=== PATIENT | male | born 1945 ===

== ENCOUNTER 2022-09-01 15:54 | Inpatient (IN) | payer MEDICARE, SELFPAY ==
--- NOTE | ~2022-09-01 | CT_ITS ---
EXAMINATION: CT HEAD WITHOUT CONTRAST CLINICAL INFORMATION: Cognitive decline COMPARISON: None available. TECHNIQUE: Contiguous axial imaging was performed from the skull base to vertex without intravenous administration of contrast. This CT examination was performed using dose optimization techniques as appropriate, variously including the following: *Automated exposure control *Adjustment of mA and/or kV according to patient size (this includes techniques or standardized protocols for targeted exams where dose is matched to indication/reason for exam; i.e. 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 No other extra-axial collection. No intra or extra-axial hemorrhage. Ventricles and extra-axial CSF spaces are prominent suggestive of mild generalized atrophy. There is nonspecific periventricular white matter disease. No mass, mass effect or infarct. Bone windows are normal. No skull fracture. Visualized paranasal sinuses, mastoid air cells and middle ears are clear. CT/CT head/brain wo IV con IMPRESSION: No acute intracranial findings. Mild generalized atrophy and nonspecific periventricular white matter disease. 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
[2022-09-01 16:10] VITALS: BP 136/68; PULSE 66; RESP 18; TEMP 36.5; O2SAT 100; BMI 25.7
--- NOTE | 2022-09-01 16:42 | ED.PSYCH ---
HPI - Psych General Chief Complaint: Psychiatric Symptoms Stated Complaint: DEMENTIA, UNCOOPERATIVE Time Seen by Provider: 09/01/22 16:03 Source: patient, EMS and other Mode of arrival: EMS History of Present Illness HPI Narrative: This is a 77-year-old male who is [facility]. Patient informs me that some lady started yelling and screaming at him and he states he has no idea why he is here. He is able to identify the year, the president, and his legs current location. Patient denies any shortness of breath, chest pain/palpitations, GI or symptoms at this time. He states that he is upset because he is unclear of why he is here. Related Data Home Medications Medication Instructions Recorded Confirmed famotidine 40 mg tablet 40 mg PO BEDTIME 09/02/22 09/02/22 lorazepam 0.5 mg tablet 0.5 mg PO BID PRN Anxiety 09/02/22 09/02/22 quetiapine 300 mg tablet 450 mg PO BEDTIME 09/02/22 09/02/22 Allergies Allergy/AdvReac Type Severity Reaction Status Date / Time No Known Allergies Allergy Verified 09/01/22 19:12 Review of Systems Review of Systems: Pertinent positives and negatives as stated in HPI PMFSH Past Medical History Source: nursing notes reviewed Social History Social History Advance Directives: Yes Advance Directives Information Provided: No Advance Directives on File: No Physical Exam Vital Signs: Vital Signs: Last Vital Signs Temp 97.7 F 09/01/22 16:10 Pulse 69 09/01/22 17:19 Resp 17 09/01/22 17:19 BP 141/69 H 09/01/22 17:19 Pulse Ox 100 09/01/22 17:19 O2 Del Method Room Air 09/01/22 17:19 BMI result Body Mass Index 25.7 VITAL SIGNS: Reviewed. GENERAL: Well developed, well nourished, in no acute distress. HEAD: Normocephalic/atraumatic EYES: PERRLA, EOMI EARS: Ext canals without abnormality NOSE: Nares patent bilateral OROPHARYNX: no oral lesions noted, posterior pharynx clear NECK: Supple, no adenopathy LUNGS: Normal breath sounds. No adventitious sounds or accessory muscle use. SpO2<100> CARDIOVASCULAR: Regular rate and rhythm without noted murmurs ABDOMEN: Soft, non-tender, non-distended with bowel sounds. MUSCULOSKELETAL: No tenderness, deformities, or effusions noted on gross inspection. EXTREMITIES: No cyanosis, clubbing or edema. SKIN: Inspection of the skin reveals no rashes NEUROLOGIC: Alert and oriented x 3. Strength and sensation to light touch were grossly intact x 4, cranial nerves 2-12 are grossly intact PSYCH: Mildly agitated, normal affect Medical Decision Making Medical Decision Making MDM Narrative: 77-year-old male brought in by EMS purportedly under Section 12 but on review of this document it is a copy and not the original, does not appear to be filled out correctly. Patient was brought in from a locked dementia unit and according to staff patient had gotten outside and they were concerned for his safety. I have medically evaluated the patient and there are no findings to necessitate lab work or imaging. This facility is a locked dementia unit and therefore patient is medically cleared for return to this unit. [facility] who cleared the patient for admission and accepted payment for admission and is claiming cocaine use by the patient and that she had concerns last week but did not recommend any further evaluation. This collateral information was obtained by our case management personnel. We have calls out to net manager, Cam Acosta, but had to leave a message and son is HCP, Vivek Kerns but no contact information and facility did not have the son's contact information. A call out to [facility] director. 1954: Dr. Bowens was able to call us back and provide contact information for Gianfranco Kerns, the son, the phone number is: [phone]. Dr. Bowens is requesting a sign of release of information but is unsure of who evaluated the patient and cleared him for admission to a locked dementia unit. We will obtain release of information signature and then I will speak with Dr. Pro owens afterwards. We will also reach out to the son. On further evaluation we are getting the crisis team consult as well as psychiatry consult. Patient is otherwise medically cleared for further evaluation. Patient was made a Section 12. Patient placed in physician observation because the patient needed more time for crisis and psychiatry evaluation. At the time observation was started the patient's vital signs were stable, patient is alert and oriented, neuro: Nonfocal, CV RRR, lungs clear Differential Diagnosis Please see this discussion above Lab Data Please see the discussion above 09/01/22 23:54 09/01/22 23:54 Labs: Lab Results 09/01/22 09/01/22 09/01/22 Range/Units 22:29 22:29 23:54 WBC 7.2 (4.8-10.8) X10*3/uL RBC 4.00 L (4.60-5.80) X10*6/uL Hgb 12.3 L (14.0-18.0) g/dl Hct 37.4 L (42.0-52.0) % MCV 93.5 (80.0-98.0) fL MCH 30.8 (27.0-33.0) pg MCHC 32.9 (31.0-36.0) g/dl RDW 14.4 (11.0-16.0) % Plt Count 195 (160-400) X10*3/uL MPV 10.7 (9.4-12.4) fL Immature Gran % (Auto) 0.3 (0.0-0.4) % Neut % (Auto) 57.9 (45-73) % Lymph % (Auto) 29.9 (20-40) % [place] % (Auto) 9.9 (2-11) % Eos % (Auto) 1.7 (0-4) % Baso % (Auto) 0.3 (0-2) % Lymph # (Auto) 2.2 (1.2-4.9) X10*3/uL [place] # (Auto) 0.7 (0.1-1.2) X10*3/uL Eos # (Auto) 0.1 (0.0-0.4) X10*3/uL Baso # (Auto) 0.0 (0.0-0.2) X10*3/uL Abs Immat Gran (auto) 0.02 (0.00-0.03) X10*3/uL Absolute Neuts (auto) 4.2 (2.0-8.3) x10*3/uL Absolute Nucleated RBC 0.000 (0.0-0.012) X10*3/uL Nucleated RBC % (auto) 0.0 (0.0-0.2) /100WBC Sodium (135-145) mmol/L Potassium (3.3-5.1) mmol/L Chloride (96-108) mmol/L Carbon Dioxide (22-29) mmol/L Anion Gap (12-20) BUN (9-16) mg/dL Creatinine (0.5-1.4) mg/dL Estim Creat Clear Calc Estimated GFR Random Glucose (60-115) mg/dL Calcium (8.4-10.2) mg/dL Total Bilirubin (0.0-1.0) mg/dL AST (5-37) U/L ALT (0-40) U/L Alkaline Phosphatase (39-117) U/L Total Protein (6.5-8.0) g/dL Albumin (3.5-5.0) g/dL Urine Color Yellow Urine Appearance Turbid Urine pH 5.0 (5.0-9.0) Ur Specific [place] 1.020 (1.005-1.025) Urine Protein Negative (Neg-Trace) mg/dL Urine Glucose (UA) Negative (Negative) mg/dL Urine Ketones Negative (Negative) mg/dL Urine Blood Negative (Negative) Urine Nitrite Negative (Negative) Ur Leukocyte Esterase Negative (Negative) Urine Opiates Screen Not Detected (Not Detect) Urine Fentanyl Screen Not Detected (Not Detect) Ur Barbiturates Screen Not Detected (Not Detect) Ur Phencyclidine Scrn Not Detected (Not Detect) Ur Amphetamines Screen Not Detected (Not Detect) U Benzodiazepines Scrn Not Detected (Not Detect) Urine Cocaine Screen Not Detected (Not Detect) U Marijuana (THC) Screen Not Detected (Not Detect) Ethyl Alcohol mg/dL COVID-19 ([facility]) (Negative) COVID-19 Clin Com 09/01/22 09/02/22 Range/Units 23:54 00:35 WBC (4.8-10.8) X10*3/uL RBC (4.60-5.80) X10*6/uL Hgb (14.0-18.0) g/dl Hct (42.0-52.0) % MCV (80.0-98.0) fL MCH (27.0-33.0) pg MCHC (31.0-36.0) g/dl RDW (11.0-16.0) % Plt Count (160-400) X10*3/uL MPV (9.4-12.4) fL Immature Gran % (Auto) (0.0-0.4) % Neut % (Auto) (45-73) % Lymph % (Auto) (20-40) % [place] % (Auto) (2-11) % Eos % (Auto) (0-4) % Baso % (Auto) (0-2) % Lymph # (Auto) (1.2-4.9) X10*3/uL [place] # (Auto) (0.1-1.2) X10*3/uL Eos # (Auto) (0.0-0.4) X10*3/uL Baso # (Auto) (0.0-0.2) X10*3/uL Abs Immat Gran (auto) (0.00-0.03) X10*3/uL Absolute Neuts (auto) (2.0-8.3) x10*3/uL Absolute Nucleated RBC (0.0-0.012) X10*3/uL Nucleated RBC % (auto) (0.0-0.2) /100WBC Sodium 143 (135-145) mmol/L Potassium 4.0 (3.3-5.1) mmol/L Chloride 109 H (96-108) mmol/L Carbon Dioxide 25 (22-29) mmol/L Anion Gap 13 (12-20) BUN 18 H (9-16) mg/dL Creatinine 1.16 (0.5-1.4) mg/dL Estim Creat Clear Calc 54.1 Estimated GFR > 60 Random Glucose 101 (60-115) mg/dL Calcium 8.8 (8.4-10.2) mg/dL Total Bilirubin 0.3 (0.0-1.0) mg/dL AST 9 (5-37) U/L ALT 8 (0-40) U/L Alkaline Phosphatase 60 (39-117) U/L Total Protein 5.8 L (6.5-8.0) g/dL Albumin 3.6 (3.5-5.0) g/dL Urine Color Urine Appearance Urine pH (5.0-9.0) Ur Specific [place] (1.005-1.025) Urine Protein (Neg-Trace) mg/dL Urine Glucose (UA) (Negative) mg/dL Urine Ketones (Negative) mg/dL Urine Blood (Negative) Urine Nitrite (Negative) Ur Leukocyte Esterase (Negative) Urine Opiates Screen (Not Detect) Urine Fentanyl Screen (Not Detect) Ur Barbiturates Screen (Not Detect) Ur Phencyclidine Scrn (Not Detect) Ur Amphetamines Screen (Not Detect) U Benzodiazepines Scrn (Not Detect) Urine Cocaine Screen (Not Detect) U Marijuana (THC) Screen (Not Detect) Ethyl Alcohol < 10 mg/dL COVID-19 ([facility]) Negative (Negative) COVID-19 Clin Com See Note Discharge Plan Discharge Clinical Impression: Agitation, Dementia Patient Disposition: Still a Patient Prescriptions: No Action lorazepam 0.5 mg tablet 0.5 mg PO BID PRN (Reason: Anxiety) quetiapine 300 mg tablet 450 mg PO BEDTIME famotidine 40 mg tablet 40 mg PO BEDTIME Referrals: Physician,Unknown J [Primary Care Provider] - 1 Week
[2022-09-01 17:19] VITALS: BP 141/69; PULSE 69; RESP 17; O2SAT 100
--- NOTE | 2022-09-01 18:04 | PC.NURSE ---
PT IS AOX4 CALM AND COOPERATIVE, TOLERATING DINNER. HAS BEEN POLITE AND TALKATIVE WITH RN
--- NOTE | 2022-09-01 19:35 | MHC.EDTECH ---
Pt refused to have an EKG done and also refused Lab work and all medical care. Pt request to leave A.M.A
--- NOTE | 2022-09-01 19:38 | MHC.EDTECH ---
PATIENT REFUSED EKG LAB WORK STATING HE WANTS TO GO HOME RN WAS MADE AWARE
--- NOTE | 2022-09-01 20:24 | PC.NURSE ---
verbal order per dr rehman pt is now a sec 12. pt has attempted to leave the hospital security present.
--- NOTE | 2022-09-01 20:55 | MHC.CM.ED ---
Addendum entered by Macy العلي Leann Adams 09/01/22 21:57: Vivek Kerns [phone] ([place]) Dr. Thomas PCP [phone] Dr. Bowens Psych [phone] Edda Cullen psych/bridger BASKETBALL REFEREE [phone] Emi Glass Director [facility] Cam Acosta software implementation project manager [phone] Original Note: [facility] arrived from [facility]. Was being admitted to facility with friend and according to Edda Cullen BASKETBALL REFEREE ([phone]) and Yoon Glass, Director at the [facility] ([phone]) pt became agitated, throwing items, threatening staff and patients, saying he was going to shoot people and continued to escalate. Pt eventually ran out of facility to street and was attempting to stop cars to take him home. Per Emi at the [facility], patient cannot return tonight and she is requesting a psych evaluation and medication management. Emi tells AMY she had some concerns when she met this patient and consulted Edda BASKETBALL REFEREE to assess patient. According to Edda CHAVEZ, pt was paranoid, delusional and depressed. Concerns about him being bipolar. Pt also has a HX of cocaine/abuse. States she had no records for this patient and had placed a call for patient history and medications with Dr. Bowens, pt psychiatrist ([phone]), but has not been able to speak with him. Edda lows AMY she met with patient once last week. CM spoke with Cam Acosta, strategic partner development manager ([phone]) who was hired by son, Vivek Kerns to provide care for patient and assist with both home care and with placement. According to Cam, patient has a psychiatric history and has had inpatient psych admissions. Cam tells AMY that patient has been at [facility] 4 times in the last 2 months for psych concerns and broken wrist. States that patient has verbally threatened him, that he is burning food and has tried to enter neighbors homes, thinking it was his home. States patient is not safe at home. States patient has seroquel for sleep, but it is not effective and patient has been sleeping poorly and has been in a downward spiral over last several weeks. Cam tells AMY that last night, patient was verbally abusive to home staff, threatening that she was stealing from him. [facility] patient behaviors escalated and 911 was called to the home. [place] police arrived and felt patient was in a psychiatric crisis, so then called the mobile psych clinician, who evaluated the patient in his home. Pt calmed down, and was making some self harm statements, however, friend was staying with patient overnight and then would be admitted to the [facility] today. Pt was not transported to the ED last night. CM spoke with Vivek Kerns, son invoked HCP and POA. Vivek is very concerned that patient not be allowed to leave. States patient is not safe at home. Burning food, entering other neighbors homes, thinking it was his house. States his father has had severe delusional issues, drug abuse, inpatient psych hospitalizations and stopped taking his medications about 3 weeks ago. Was taking Klonopin, seroquel and Rexualti. Spiralling downward, abusive, inviting vagrants into his home, thinking they were his 's family. Thinks home care staff are stealing from him. Son thinks patient may have $5000 dollars in is wallet. States his father was agreeable to move to the [facility] and even helped pack. Vivek feels he was agreeable because he did not want the hired home help in his home anymore. Vivek tells CM that Dr. Morton in [place], his fathers PCP invoked the HCP. Ivvek tells CM that Dr. Nicki Tse saw his father in December and had concerns about dementia, but was unable to complete testing, as his father would not cooperate. CM assured Vivek that patient would remain in ED tonight, as the [facility] would not take him back tonight. Vivek is much relieved. Has contact information for CM. Will call him with updates tomorrow. Dr. Sierra aware of above conversations and will consult CARE team. CM spoke with Jenifer from CARE team. Feels patient may need bridger-psych admission. CARE team will evaluate patient. CM met with patient. Patient is aware that he will stay overnight and that the psych team will see him. Pt states that there is nothing wrong with him. States his son wants his money and he has 40 million dollars. States he just wanted to leave the assisted living today and they would not let him. States there are only old people there. CM did explain that most people that live at assisted living have andres hair. CM explained that there are some concerns about his safety. Pt denies any safety concerns. Pt voice was rising and he states he is safe at home and has help. Pt requesting something for sleep. RN aware. Requested bed for patient to sleep.
--- NOTE | 2022-09-01 21:27 | PHA.MEDREC ---
Addendum entered by Vishnu Deleon 09/01/22 21:52: The son called back and said the patient has not been on any medications for about a month now due to his dementia diagnosis. Original Note: Pharmacy Consult ? Medication Reconciliation Pharmacy has completed the medication reconciliation. unable to speak with patient. Left his son (Vivek) a voicemail. Called the [facility] and they did not have him on any medications since he was new to the facility. They tried to order and administer Lorazepam to the patient today, but the nurse that I spoke with does not know if he ever received it. Used claim history to complete med reconciliation.
--- NOTE | 2022-09-01 21:47 | PC.NURSE ---
assumed care of pt in room ED 17 from [facility]. Pt is agitated and is upset with the son for putting him in a nursing facility. Pt also is rather aggressive with the staff and states he just wants to leave and wants to be alone . Pt appears to be pressured with his speech and rather paranoid and refusing any Blood work or treatments to be preformed by the hospital staff. Pt is constantly in need assurance that the staff has his best interest. .
--- NOTE | 2022-09-01 22:00 | PC.NURSE ---
Pt throughout the day/night is refusing lab work, EKG, testing that are prevalent to his care or any type of treatment. Pt is very agrumentive when asked to do anything for his care. MD is aware of pts refusal and behavior.
[2022-09-01 22:46] LABS: Amphetamine Screen Urine Not Detected (Not Detect); Barbiturates, Urine Not Detected (Not Detect); Benzodiazepines Screen Urine Not Detected (Not Detect); Cannabinoid Screen Urine Not Detected (Not Detect); Cocaine Screen Urine Not Detected (Not Detect); Fentanyl, urine Not Detected (Not Detect); Opiate Screen Urine Not Detected (Not Detect); Phencyclidine Screen Urine Not Detected (Not Detect)
--- NOTE | 2022-09-01 23:28 | MHC.EDTECH ---
Patient refused vitals at this time ED ROUNDS ARE DONE WILL CONTINUE TO MONITOR
[2022-09-01 23:58] LABS: MANUAL DIFF FLAG NO
[2022-09-01 23:59] LABS: Basophils Percent Auto 0.3 % (0-2); Eosinophils Absolute Auto 0.1 X10*3/uL (0.0-0.4); Eosinophils Percent Auto 1.7 % (0-4); Hematocrit 37.4 % (42.0-52.0); Hemoglobin 12.3 g/dl (14.0-18.0); Imm Gran Abs Auto 0.02 X10*3/uL (0.00-0.03); Imm Gran Pct Auto 0.3 % (0.0-0.4); Lymphocytes Absolute Auto 2.2 X10*3/uL (1.2-4.9); Lymphocytes Percent Auto 29.9 % (20-40); Mean Corpuscular HGB Conc 32.9 g/dl (31.0-36.0); Mean Corpuscular Hemoglobin 30.8 pg (27.0-33.0); Mean Corpuscular Volume 93.5 fL (80.0-98.0); Mean Platelet Volume 10.7 fL (9.4-12.4); Monocytes Absolute Auto 0.7 X10*3/uL (0.1-1.2); Monocytes Percent Auto 9.9 % (2-11); Neutrophils Absolute Auto 4.2 x10*3/uL (2.0-8.3); Neutrophils Percent Auto 57.9 % (45-73); Platelet Count 195 X10*3/uL (160-400); Red Cell Distribution Width 14.4 % (11.0-16.0); White Blood Count 7.2 X10*3/uL (4.8-10.8)
[2022-09-02 00:17] LABS: Alanine Aminotransferase 8 U/L (0-40); Albumin Level 3.6 g/dL (3.5-5.0); Alkaline Phosphatase 60 U/L (39-117); Anion Gap 13 (12-20); Aspartate Amino Transferase 9 U/L (5-37); Bilirubin Total 0.3 mg/dL (0.0-1.0); Blood Urea Nitrogen 18 mg/dL (9-16); Calcium 8.8 mg/dL (8.4-10.2); Carbon Dioxide 25 mmol/L (22-29); Chloride 109 mmol/L (96-108); Creatinine Clr Calc Pharmacy 54.1; Estimated Glomerular Filt Rate > 60; Ethanol < 10 mg/dL; Glucose Random 101 mg/dL (60-115); Sodium 143 mmol/L (135-145); Total Protein 5.8 g/dL (6.5-8.0)
--- NOTE | 2022-09-02 00:21 | PC.NURSE ---
pt has been refusing, labs, private branch exchange installer, ekg and covid swab. with security present pt labs and private branch exchange installer took place. pt verbally refusing additional treatment and wants to go to his room (bridger dai)
[2022-09-02 00:38] LABS: Appearance Urine Turbid; Color Urine Yellow; Glucose Urine UA Negative (Negative); Leukocyte Esterase Urine Negative (Negative); Nitrite Urine Negative (Negative); Urine Blood Negative (Negative); Urine Ketones Negative (Negative); Urine Protein Negative (Neg-Trace)
--- NOTE | 2022-09-02 00:40 | MHC.EDTECH ---
this tech assumed care of this pt at 0020, upon arrival to the pod pt agitated and refusing all vital signs at this time. RN MADE AWARE.
--- NOTE | 2022-09-02 00:43 | PC.NURSE ---
Patient just got transferred from main ED after getting cleared medically by MD Sierra, ambulates independently, loud and disruptive, med rec updated, per report patient has been refusing EKG and stating his heart great and he did EKG recently so he doesn't need one, plan for patient will be determined by care team and psych providers, VS refused. will continue to monitor.
[2022-09-02 00:58] LABS: COVID-19 Test Negative (Negative); IDNOW Serial# BCCEAD1C
--- NOTE | 2022-09-02 05:42 | PC.NURSE ---
Patient slept through the night, no distress observed/reported, behavior loud and disruptive but not concerning, care consult ordered/pending care team evaluation in the morning, psych consult ordered/pending evaluation, med rec completed/pending provider's approval, refused vital signs assessment, per report patient listen better to male staff member, will continue to monitor.
--- NOTE | 2022-09-02 11:30 | MHC.EDTECH ---
Pt still refusing EKG at this time.
[2022-09-02 18:00] VITALS: BP 139/71; PULSE 57; RESP 18; TEMP 36.6; O2SAT 98
--- NOTE | 2022-09-02 18:33 | PC.ADMIT ---
Addendum entered by Annie Valencia RN 09/02/22 18:49: Skin warm and dry. Splint noted to L wrist 2 to previous fall at home. Pt states fell 6 months ago and fractured wrist. C/o increased pain to that wrist when splint off. Edema noted to that wrist. +CMS to L hand Original Note: Pt admitted to S1 through ED. Pt oriented to floor-states I want nothing to do with this Ate meal in sensory room. Pt reluctantly answered admission questions stating I want to go home. I don't want to be here Pt A&O x 4 although states he is unaware of what day it is since he's been here. VSS resp even unlabored. States he was sent to a alf where he did not like the atmosphere of others in wheelchairs and feels that is not the place for him to live. He became angry and left. He returned to the car that brought him to the [facility] which drove him around the facility and returned him to the front door. He got out of the car, became extremely agitated and began yelling everyone is going to here He started throwing the flower pots, kicking them upon walking out of the parking lot where he was picked up by the police and brought to [facility] ED. Pt has a hx of depression and SI. No HI. States he presently is not suicidal but he no longer wants to live like this. Son, Vivek is presently his HCP but pt refuses to sign release at present to speak with him. 3 day notice signed
[2022-09-02] MEDS: Famotidine 20 MG TABLET 40 MG PO (20:33)
[2022-09-02] MEDS: QUEtiapine Fumarate 50 MG TABLET PO (20:34)
[2022-09-02] MEDS: QUEtiapine Fumarate 400 MG TABLET PO (20:35)
--- NOTE | 2022-09-03 | ECG_ITS ---
Test Reason : QTC Blood Pressure : / mmHG Vent. Rate : 068 BPM Atrial Rate : 068 BPM P-R Int : 148 ms QRS Dur : 138 ms QT Int : 432 ms P-R-T Axes : 055 037 029 degrees QTc Int : 459 ms Normal sinus rhythm Right bundle branch block Abnormal ECG No previous ECGs available Referred By: Jessica Mcgee Electronically Signed By:RANJIT PEARCE MD
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
[2022-09-03] MEDS: LORazepam 0.5 MG TABLET PO ×2 (13:36→20:38)
[2022-09-03] MEDS: risperiDONE 1 MG TABLET PO ×2 (13:36→20:38)
[2022-09-03 18:00] VITALS: BP 142/79; PULSE 78; RESP 18; TEMP 36.2; O2SAT 99
[2022-09-03] MEDS: Famotidine 20 MG TABLET 40 MG PO (20:38)
[2022-09-03] MEDS: Divalproex Sodium 250 MG TABLET.DR PO (20:38)
[2022-09-04] MEDS: traZODone HCL 50 MG TABLET PO ×2 (00:56→21:06)
[2022-09-04] MEDS: LORazepam 0.5 MG TABLET PO ×2 (09:04→20:14)
[2022-09-04] MEDS: Divalproex Sodium 250 MG TABLET.DR PO ×2 (09:04→20:14)
[2022-09-04] MEDS: risperiDONE 1 MG TABLET PO ×2 (09:04→20:14)
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
[2022-09-04 18:00] VITALS: BP 122/68; PULSE 79; RESP 18; TEMP 36.2; O2SAT 100
[2022-09-04] MEDS: LORazepam 2 MG/ML VIAL IM (19:19)
[2022-09-04] MEDS: OLANZapine 10 MG VIAL IM (19:19)
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
[2022-09-04] MEDS: Famotidine 20 MG TABLET 40 MG PO (20:14)
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
[2022-09-06] MEDS: risperiDONE 2 MG TABLET PO ×2 (09:22→22:36)
[2022-09-06] MEDS: LORazepam 0.5 MG TABLET PO ×2 (09:22→22:36)
[2022-09-06] MEDS: Divalproex Sodium 250 MG TABLET.DR PO ×2 (09:22→22:35)
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
[2022-09-06] MEDS: risperiDONE 0.5 MG TABLET PO (17:38)
[2022-09-06 18:00] VITALS: BP 115/58; PULSE 78; RESP 16; TEMP 36.3; O2SAT 97
[2022-09-06] MEDS: Famotidine 20 MG TABLET 40 MG PO (22:35)
[2022-09-06] MEDS: traZODone HCL 50 MG TABLET PO (22:36)
[2022-09-07 08:05] VITALS: BP 113/70; PULSE 95; RESP 16; TEMP 36.1; O2SAT 96
[2022-09-07] MEDS: LORazepam 0.5 MG TABLET PO ×2 (08:29→20:01)
[2022-09-07] MEDS: risperiDONE 2 MG TABLET PO ×2 (08:29→20:01)
[2022-09-07] MEDS: Divalproex Sodium 250 MG TABLET.DR PO (08:29)
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
[2022-09-07 18:00] VITALS: BP 153/71; PULSE 73; RESP 18; TEMP 36.3; O2SAT 98
[2022-09-07] MEDS: traZODone HCL 100 MG TABLET PO ×2 (20:00→22:50)
[2022-09-07] MEDS: Divalproex Sodium 500 MG TABLET.DR PO (20:01)
[2022-09-07] MEDS: Famotidine 20 MG TABLET 40 MG PO (20:02)
[2022-09-08 06:00] VITALS: BP 131/68; PULSE 77; RESP 18; TEMP 36.4; O2SAT 97
[2022-09-08] MEDS: risperiDONE 2 MG TABLET PO ×2 (10:42→20:04)
[2022-09-08] MEDS: Divalproex Sodium 500 MG TABLET.DR PO ×2 (10:42→20:04)
[2022-09-08] MEDS: LORazepam 0.5 MG TABLET PO ×2 (10:42→20:04)
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
[2022-09-08 18:00] VITALS: BP 129/77; PULSE 78; RESP 16; TEMP 36.9; O2SAT 97
[2022-09-08] MEDS: traZODone HCL 100 MG TABLET PO (20:04)
[2022-09-08] MEDS: Famotidine 20 MG TABLET 40 MG PO (20:04)
[2022-09-09 06:00] VITALS: BP 140/71; PULSE 81; RESP 18; TEMP 36.2; O2SAT 96
[2022-09-09] MEDS: risperiDONE 2 MG TABLET PO ×2 (09:10→20:16)
[2022-09-09] MEDS: LORazepam 0.5 MG TABLET PO ×2 (09:11→20:16)
[2022-09-09] MEDS: Divalproex Sodium 500 MG TABLET.DR PO ×2 (09:11→20:16)
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
[2022-09-09 20:05] VITALS: BP 146/79; PULSE 76; RESP 16; TEMP 36.3; O2SAT 97
[2022-09-09] MEDS: traZODone HCL 100 MG TABLET PO ×2 (20:15→21:17)
[2022-09-09] MEDS: Famotidine 20 MG TABLET 40 MG PO (20:16)
[2022-09-10] MEDS: risperiDONE 2 MG TABLET PO ×2 (10:24→20:27)
[2022-09-10] MEDS: Divalproex Sodium 500 MG TABLET.DR PO ×2 (10:24→20:27)
[2022-09-10] MEDS: LORazepam 0.5 MG TABLET PO ×2 (10:24→20:27)
[2022-09-10 10:32] VITALS: BP 144/65; PULSE 78; RESP 18; TEMP 35.9; O2SAT 97
[2022-09-10 14:01] VITALS: BMI 23.4
[2022-09-10 18:00] VITALS: BP 136/78; PULSE 80; RESP 18; TEMP 36.6; O2SAT 98
--- NOTE | 2022-09-10 19:23 | HO.PSYCHPN ---
Subjective Subjective Date of Service: 09/10/22 Reason For Visit: agitation Subjective Notes: Section 7 Interim History: Pt presents as calmer. He continues to agree to plan of re trying returning to [facility]. He reports he feels calmer, still no insight into extend of cognitive impairment and need for additional supports. He denies SI/HI. He is taking medications as prescribed. [facility] can take him 09/14. Per nursing, no agitation or combative behaviors. Medication Compliance: Yes Review of Systems Review of Systems Pt denies SOB. No chest pain. No GI symptoms including diarrhea or loose stools. Mental Status Exam Mental Status Exam Narrative: Appearance: casually groomed, appears stated age, in NAD Behavior: initially guarded, but increasingly more cooperative Psychomotor: no agitation or retardation noted Speech: clear, normal rate/rhythm/volume, spontaneous TP: mostly linear, tangential at times, no loose associations TC: wanting to go home soon, paranoid delusions of people stealing from him Mood: upset Affect: congruent SI: passive due to paranoid delusions but denies plan or intent to harm self or others HI: none AH/VH: reports hearing voices on and off Delusions: paranoid delusions of people coming to his house, stealing from him. Insight/judgment: impaired x 2. Memory/cog: alert, oriented to place, month, date, not situation. Diagnostics Vital Signs (24Hr): Vital Signs - 24 hr 09/09/22 20:05 09/10/22 10:32 Temperature 97.3 F 96.7 F L Pulse Rate 76 78 Respiratory Rate 16 18 Blood Pressure 146/79 H 144/65 H Pulse Oximetry 97 97 Oxygen Delivery Method Room Air Room Air BMI result Body Mass Index 23.4 Labs 09/01/22 23:54 09/01/22 23:54 Imaging Radiology Impressions: ITS Impressions Head CT 09/03/22 15:14 IMPRESSION: No acute intracranial findings. Mild generalized atrophy and nonspecific periventricular white matter disease. 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 Medications Medications Current Medications Acetaminophen (Acetaminophen 325 Mg Tablet) 650 mg PO Q6H PRN PRN Reason: Headache/Pain Mild Scale (1-3) Al Hydroxide/Mg Hydroxide (Magnesium Hydrox/Alum Hydrox 30 Ml Oral.Susp) 30 ml PO Q6H PRN PRN Reason: Heartburn/Nausea Benztropine Mesylate (Benztropine Mesylate 0.5 Mg Tablet) 0.5 mg PO TID PRN PRN Reason: Extrapyramidal Effects Divalproex Sodium (Divalproex Sodium 500 Mg Tablet.Dr) 500 mg PO BID [facility] Last Admin: 09/10/22 10:24 Dose: 500 mg Famotidine (Famotidine 20 Mg Tablet) 40 mg PO BEDTIME [facility] Last Admin: 09/09/22 20:16 Dose: 40 mg Lorazepam (Lorazepam 0.5 Mg Tablet) 0.5 mg PO BID [facility] Last Admin: 09/10/22 10:24 Dose: 0.5 mg Magnesium Hydroxide (Milk Of Magnesia 30 Ml Oral.Susp) 30 ml PO DAILY PRN PRN Reason: Constipation Risperidone (Risperidone 0.5 Mg Tablet) 0.5 mg PO Q6H PRN PRN Reason: agitation Last Admin: 09/06/22 17:38 Dose: 0.5 mg Risperidone (Risperidone 2 Mg Tablet) 2 mg PO BID [facility] Last Admin: 09/10/22 10:24 Dose: 2 mg Trazodone HCl (Trazodone Hcl 100 Mg Tablet) 100 mg PO BEDTIME PRN PRN Reason: Insomnia Last Admin: 09/09/22 21:17 Dose: 100 mg Allergies Allergies Allergy/AdvReac Type Severity Reaction Status Date / Time No Known Allergies Allergy Verified 09/01/22 19:12 Assessment & Plan Assessment & Plan (1) Major neurocognitive disorder due to multiple etiologies with behavioral disturbance: Status: Acute Code(s): F02.818 - Dementia in other diseases classified elsewhere, unspecified severity, with other behavioral disturbance Plan Mr. Kerns is a 77 year-old male with hx of dementia, Bipolar Disorder who was brought on a Sect 12a after he was brought to formerly [facility] due to concerns of his ability to care for himself. While he was there, pt demanded to leave the facility and became combative. On the unit, pt presents with paranoid delusions stating that people are breaking to his home and turning his AC off. He also reports people are entering his apartment and stealing his food. He also reports he suspects his son is after his money and this being the reason for son to send him to [facility]. Per son, psychosis is fairly new since last year. Pt does have hx of Bipolar Disorder. He also has hx of cocaine and opioid use. Son suspects pt used last 2 months ago. Pt does not show understanding of medical conditions, rationale for medical interventions, lacking capacity to make medical decisions. We discussed risks, benefits and alternative treatment options with both son as HCP and pt, about switching seroquel to risperidone and starting mood stabilizer such as depakote. PLAN 1. Admit to S1, CV, 3 day, 15 minutes checks for safety. 09/07 increase depakote to 500mg po BID. Continue risperidone 2mg po BID- some involuntary perioral movement noted, can add cogentin. No cogwheel. 09/08 continue tx. will check depakote level in 4 days. 09/09 continue tx. 09/10 continue current tx. pt calmer, no agitation nor aggression. Reason for continued inpatient stay Substantial Risk for: inability to function Time Spent With Patient Time: Total time managing care of this patient today ____ minutes.
[2022-09-10] MEDS: Famotidine 20 MG TABLET 40 MG PO (20:27)
[2022-09-10] MEDS: traZODone HCL 100 MG TABLET PO ×2 (20:28→21:32)
[2022-09-11 08:00] VITALS: BP 119/65; PULSE 77; RESP 20; TEMP 36.4; O2SAT 96
[2022-09-11] MEDS: Divalproex Sodium 500 MG TABLET.DR PO ×2 (08:34→19:48)
[2022-09-11] MEDS: risperiDONE 2 MG TABLET PO ×2 (08:34→19:49)
[2022-09-11] MEDS: LORazepam 0.5 MG TABLET PO ×2 (08:34→19:49)
[2022-09-11] MEDS: risperiDONE 0.5 MG TABLET PO (13:20)
--- NOTE | 2022-09-11 17:16 | HO.PSYCHPN ---
Subjective Subjective Date of Service: 09/11/22 Reason For Visit: agitation Subjective Notes: Conditional Voluntary Interim History: Pt reports feeling calmer, less anxious. He continues to agree to try going to [facility]. Pt denies SI/HI. She reports sleeping well. No behavioral concerns. Less paranoia. No aggression here on the unit. Medication Compliance: Yes Review of Systems Review of Systems Pt denies SOB. No chest pain. No GI symptoms including diarrhea or loose stools. Mental Status Exam Mental Status Exam Narrative: Appearance: casually groomed, appears stated age, in NAD Behavior: initially guarded, but increasingly more cooperative Psychomotor: no agitation or retardation noted Speech: clear, normal rate/rhythm/volume, spontaneous TP: mostly linear, tangential at times, no loose associations TC: wanting to go home soon, paranoid delusions of people stealing from him Mood: upset Affect: congruent SI: passive due to paranoid delusions but denies plan or intent to harm self or others HI: none AH/VH: reports hearing voices on and off Delusions: paranoid delusions of people coming to his house, stealing from him. Insight/judgment: impaired x 2. Memory/cog: alert, oriented to place, month, date, not situation. Diagnostics Vital Signs (24Hr): Vital Signs - 24 hr 09/10/22 18:00 09/11/22 08:00 Temperature 97.8 F 97.6 F Pulse Rate 80 77 Respiratory Rate 18 20 Blood Pressure 136/78 119/65 Pulse Oximetry 98 96 Oxygen Delivery Method Room Air Room Air BMI result Body Mass Index 23.4 Labs 09/01/22 23:54 09/01/22 23:54 Imaging Radiology Impressions: ITS Impressions Head CT 09/03/22 15:14 IMPRESSION: No acute intracranial findings. Mild generalized atrophy and nonspecific periventricular white matter disease. 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 Medications Medications Current Medications Acetaminophen (Acetaminophen 325 Mg Tablet) 650 mg PO Q6H PRN PRN Reason: Headache/Pain Mild Scale (1-3) Al Hydroxide/Mg Hydroxide (Magnesium Hydrox/Alum Hydrox 30 Ml Oral.Susp) 30 ml PO Q6H PRN PRN Reason: Heartburn/Nausea Benztropine Mesylate (Benztropine Mesylate 0.5 Mg Tablet) 0.5 mg PO TID PRN PRN Reason: Extrapyramidal Effects Divalproex Sodium (Divalproex Sodium 500 Mg Tablet.Dr) 500 mg PO BID [facility] Last Admin: 09/11/22 08:34 Dose: 500 mg Famotidine (Famotidine 20 Mg Tablet) 40 mg PO BEDTIME [facility] Last Admin: 09/10/22 20:27 Dose: 40 mg Lorazepam (Lorazepam 0.5 Mg Tablet) 0.5 mg PO BID [facility] Last Admin: 09/11/22 08:34 Dose: 0.5 mg Magnesium Hydroxide (Milk Of Magnesia 30 Ml Oral.Susp) 30 ml PO DAILY PRN PRN Reason: Constipation Risperidone (Risperidone 0.5 Mg Tablet) 0.5 mg PO Q6H PRN PRN Reason: agitation Last Admin: 09/11/22 13:20 Dose: 0.5 mg Risperidone (Risperidone 2 Mg Tablet) 2 mg PO BID [facility] Last Admin: 09/11/22 08:34 Dose: 2 mg Trazodone HCl (Trazodone Hcl 100 Mg Tablet) 100 mg PO BEDTIME PRN PRN Reason: Insomnia Last Admin: 09/10/22 21:32 Dose: 100 mg Allergies Allergies Allergy/AdvReac Type Severity Reaction Status Date / Time No Known Allergies Allergy Verified 09/01/22 19:12 Assessment & Plan Assessment & Plan (1) Major neurocognitive disorder due to multiple etiologies with behavioral disturbance: Status: Acute Code(s): F02.818 - Dementia in other diseases classified elsewhere, unspecified severity, with other behavioral disturbance Plan Mr. Kerns is a 77 year-old male with hx of dementia, Bipolar Disorder who was brought on a Sect 12a after he was brought to [facility] due to concerns of his ability to care for himself. While he was there, pt demanded to leave the facility and became combative. On the unit, pt presents with paranoid delusions stating that people are breaking to his home and turning his AC off. He also reports people are entering his apartment and stealing his food. He also reports he suspects his son is after his money and this being the reason for son to send him to [facility]. Per son, psychosis is fairly new since last year. Pt does have hx of Bipolar Disorder. He also has hx of cocaine and opioid use. Son suspects pt used last 2 months ago. Pt does not show understanding of medical conditions, rationale for medical interventions, lacking capacity to make medical decisions. We discussed risks, benefits and alternative treatment options with both son as HCP and pt, about switching seroquel to risperidone and starting mood stabilizer such as depakote. PLAN 1. Admit to S1, CV, 3 day, 15 minutes checks for safety. 09/07 increase depakote to 500mg po BID. Continue risperidone 2mg po BID- some involuntary perioral movement noted, can add cogentin. No cogwheel. 09/08 continue tx. will check depakote level in 4 days. 09/09 continue tx. 09/10 continue current tx. pt calmer, no agitation nor aggression. 09/11 continue tx. Reason for continued inpatient stay Substantial Risk for: inability to function Time Spent With Patient Time: Total time managing care of this patient today ____ minutes.
[2022-09-11 18:00] VITALS: BP 160/77; PULSE 74; RESP 16; TEMP 36.6; O2SAT 99
[2022-09-11] MEDS: traZODone HCL 100 MG TABLET PO ×2 (19:48→21:18)
[2022-09-11] MEDS: Famotidine 20 MG TABLET 40 MG PO (19:49)
[2022-09-12 06:05] VITALS: BP 135/60; PULSE 67; RESP 16; TEMP 36.7; O2SAT 97
[2022-09-12] MEDS: risperiDONE 2 MG TABLET PO ×2 (08:07→20:40)
[2022-09-12] MEDS: Divalproex Sodium 500 MG TABLET.DR PO ×2 (08:07→20:40)
[2022-09-12] MEDS: LORazepam 0.5 MG TABLET PO ×3 (08:08→20:41)
[2022-09-12] MEDS: amLODIPine Besylate 2.5 MG TABLET PO (09:09)
[2022-09-12] MEDS: risperiDONE 0.5 MG TABLET PO (14:33)
[2022-09-12 18:00] VITALS: BP 175/85; PULSE 71; RESP 16; TEMP 37.1; O2SAT 98
--- NOTE | 2022-09-12 18:19 | HO.PSYCHPN ---
Subjective Subjective Date of Service: 09/12/22 Reason For Visit: agitation Subjective Notes: Conditional Voluntary Interim History: Pt reports feeling too tired with medications, asks if some of doses of medications can be decreased, we discussed lowering nighttime trazodone, d/c ativan continue risperidone and depakote. Pt reported later feeling a little bit anxious. He denies SI/HI. He is in agreement to go to [facility] on Tuesday able to retain this information. Review of Systems Review of Systems Pt denies SOB. No chest pain. No GI symptoms including diarrhea or loose stools. Mental Status Exam Mental Status Exam Narrative: Appearance: casually groomed, appears stated age, in NAD Behavior: initially guarded, but increasingly more cooperative Psychomotor: no agitation or retardation noted Speech: clear, normal rate/rhythm/volume, spontaneous TP: mostly linear, tangential at times, no loose associations TC: wanting to go home soon, paranoid delusions of people stealing from him Mood: upset Affect: congruent SI: passive due to paranoid delusions but denies plan or intent to harm self or others HI: none AH/VH: reports hearing voices on and off Delusions: paranoid delusions of people coming to his house, stealing from him. Insight/judgment: impaired x 2. Memory/cog: alert, oriented to place, month, date, not situation. Patient Appearance: Well Grooomed and Appropriate Patient Orientation: Person and Situation Level of Consciousness: Awake and Appropriate Patient Behavior: Guarded and Passive Mood Description: Labile Affect Description: Withdrawn and Labile Patient Cognition Impaired: Yes Ability to Follow Directions: Fair Speech Pattern: Clear Diagnostics Vital Signs (24Hr): Vital Signs - 24 hr 09/12/22 06:05 Temperature 98.0 F Pulse Rate 67 Respiratory Rate 16 Blood Pressure 135/60 Pulse Oximetry 97 Oxygen Delivery Method Room Air BMI result Body Mass Index 23.4 Labs 09/01/22 23:54 09/01/22 23:54 Imaging Radiology Impressions: ITS Impressions Head CT 09/03/22 15:14 IMPRESSION: No acute intracranial findings. Mild generalized atrophy and nonspecific periventricular white matter disease. 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 Medications Medications Current Medications Acetaminophen (Acetaminophen 325 Mg Tablet) 650 mg PO Q6H PRN PRN Reason: Headache/Pain Mild Scale (1-3) Al Hydroxide/Mg Hydroxide (Magnesium Hydrox/Alum Hydrox 30 Ml Oral.Susp) 30 ml PO Q6H PRN PRN Reason: Heartburn/Nausea Amlodipine Besylate (Amlodipine Besylate 2.5 Mg Tablet) 2.5 mg PO DAILY [facility]; Protocol Last Admin: 09/12/22 10:34 Dose: Not Given Benztropine Mesylate (Benztropine Mesylate 0.5 Mg Tablet) 0.5 mg PO TID PRN PRN Reason: Extrapyramidal Effects Divalproex Sodium (Divalproex Sodium 500 Mg Tablet.Dr) 500 mg PO BID [facility] Last Admin: 09/12/22 08:07 Dose: 500 mg Famotidine (Famotidine 20 Mg Tablet) 40 mg PO BEDTIME [facility] Last Admin: 09/11/22 19:49 Dose: 40 mg Lorazepam (Lorazepam 0.5 Mg Tablet) 0.5 mg PO BID PRN PRN Reason: anxiety Last Admin: 09/12/22 14:32 Dose: 0.5 mg Magnesium Hydroxide (Milk Of Magnesia 30 Ml Oral.Susp) 30 ml PO DAILY PRN PRN Reason: Constipation Risperidone (Risperidone 0.5 Mg Tablet) 0.5 mg PO Q6H PRN PRN Reason: agitation Last Admin: 09/12/22 14:33 Dose: 0.5 mg Risperidone (Risperidone 2 Mg Tablet) 2 mg PO BID [facility] Last Admin: 09/12/22 08:07 Dose: 2 mg Trazodone HCl (Trazodone Hcl 100 Mg Tablet) 100 mg PO BEDTIME PRN PRN Reason: Insomnia Last Admin: 09/11/22 21:18 Dose: 100 mg Allergies Allergies Allergy/AdvReac Type Severity Reaction Status Date / Time No Known Allergies Allergy Verified 09/01/22 19:12 Assessment & Plan Assessment & Plan (1) Major neurocognitive disorder due to multiple etiologies with behavioral disturbance: Status: Acute Code(s): F02.818 - Dementia in other diseases classified elsewhere, unspecified severity, with other behavioral disturbance Plan Mr. Kerns is a 77 year-old male with hx of dementia, Bipolar Disorder who was brought on a Sect 12a after he was brought to [facility] due to concerns of his ability to care for himself. While he was there, pt demanded to leave the facility and became combative. On the unit, pt presents with paranoid delusions stating that people are breaking to his home and turning his AC off. He also reports people are entering his apartment and stealing his food. He also reports he suspects his son is after his money and this being the reason for son to send him to [facility]. Per son, psychosis is fairly new since last year. Pt does have hx of Bipolar Disorder. He also has hx of cocaine and opioid use. Son suspects pt used last 2 months ago. Pt does not show understanding of medical conditions, rationale for medical interventions, lacking capacity to make medical decisions. We discussed risks, benefits and alternative treatment options with both son as HCP and pt, about switching seroquel to risperidone and starting mood stabilizer such as depakote. PLAN 1. Admit to S1, CV, 3 day, 15 minutes checks for safety. 09/07 increase depakote to 500mg po BID. Continue risperidone 2mg po BID- some involuntary perioral movement noted, can add cogentin. No cogwheel. 09/08 continue tx. will check depakote level in 4 days. 09/09 continue tx. 09/10 continue current tx. pt calmer, no agitation nor aggression. 09/11 continue tx. 09/12 decrease trazodone to 100mg po qhs. Reason for continued inpatient stay Substantial Risk for: inability to function Time Spent With Patient Time: Total time managing care of this patient today ____ minutes.
[2022-09-12] MEDS: Acetaminophen 325 MG TABLET 650 MG PO (20:39)
[2022-09-12] MEDS: Famotidine 20 MG TABLET 40 MG PO (20:40)
[2022-09-12] MEDS: traZODone HCL 100 MG TABLET PO (20:40)
[2022-09-13 07:15] LABS: Ammonia 62 umol/L (13-55)
[2022-09-13 07:18] LABS: Valproate 65.8 mcg/mL (50.0-100.0)
[2022-09-13 07:49] VITALS: BP 152/74; PULSE 76; RESP 18; TEMP 36.2; O2SAT 98
[2022-09-13] MEDS: risperiDONE 2 MG TABLET PO ×2 (08:19→20:22)
[2022-09-13] MEDS: LORazepam 0.5 MG TABLET PO ×3 (08:20→21:25)
[2022-09-13] MEDS: amLODIPine Besylate 2.5 MG TABLET PO (08:20)
[2022-09-13] MEDS: Divalproex Sodium 500 MG TABLET.DR PO ×2 (10:13→20:22)
[2022-09-13] MEDS: risperiDONE 0.5 MG TABLET PO (10:15)
--- NOTE | 2022-09-13 13:42 | P.PNPSI_ITS ---
Subjective Subjective Date of Service: 09/13/22 Reason For Visit: agitation Subjective Notes: Conditional Voluntary Interim History: Pt reports feeling better. He reports sleeping well. NO overly sedated. He reports he continues with plan to go back to [facility]. He denies SI/HI. No overt psychosis. Ammonia level slightly elevated, will add lactulose, no signs of encephalopathy. Depakote level in 60's. Review of Systems Review of Systems Pt denies SOB. No chest pain. No GI symptoms including diarrhea or loose stools. Mental Status Exam Mental Status Exam Narrative: Appearance: casually groomed, appears stated age, in NAD Behavior: initially guarded, but increasingly more cooperative Psychomotor: no agitation or retardation noted Speech: clear, normal rate/rhythm/volume, spontaneous TP: mostly linear, tangential at times, no loose associations TC: wanting to go home soon, paranoid delusions of people stealing from him Mood: upset Affect: congruent SI: passive due to paranoid delusions but denies plan or intent to harm self or others HI: none AH/VH: reports hearing voices on and off Delusions: paranoid delusions of people coming to his house, stealing from him. Insight/judgment: impaired x 2. Memory/cog: alert, oriented to place, month, date, not situation. Diagnostics Vital Signs (24Hr): Vital Signs - 24 hr 09/12/22 18:00 09/13/22 07:49 Temperature 98.8 F 97.1 F Pulse Rate 71 76 Respiratory Rate 16 18 Blood Pressure 175/85 H 152/74 H Pulse Oximetry 98 98 Oxygen Delivery Method Room Air Room Air BMI result Body Mass Index 23.4 Labs 09/01/22 23:54 09/01/22 23:54 Labs: Laboratory Results - last 48 hr 09/13/22 09/13/22 06:47 06:47 Ammonia 62 H Valproic Acid 65.8 Imaging Radiology Impressions: ITS Impressions Head CT 09/03/22 15:14 IMPRESSION: No acute intracranial findings. Mild generalized atrophy and nonspecific periventricular white matter disease. 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 Medications Medications Current Medications Acetaminophen (Acetaminophen 325 Mg Tablet) 650 mg PO Q6H PRN PRN Reason: Headache/Pain Mild Scale (1-3) Last Admin: 09/12/22 20:39 Dose: 650 mg Al Hydroxide/Mg Hydroxide (Magnesium Hydrox/Alum Hydrox 30 Ml Oral.Susp) 30 ml PO Q6H PRN PRN Reason: Heartburn/Nausea Amlodipine Besylate (Amlodipine Besylate 2.5 Mg Tablet) 2.5 mg PO DAILY [facility]; Protocol Last Admin: 09/13/22 08:20 Dose: 2.5 mg Benztropine Mesylate (Benztropine Mesylate 0.5 Mg Tablet) 0.5 mg PO TID PRN PRN Reason: Extrapyramidal Effects Divalproex Sodium (Divalproex Sodium 500 Mg Tablet.Dr) 500 mg PO BID [facility] Last Admin: 09/13/22 10:13 Dose: 500 mg Famotidine (Famotidine 20 Mg Tablet) 40 mg PO BEDTIME [facility] Last Admin: 09/12/22 20:40 Dose: 40 mg Lactulose (Lactulose 20 Gm/30 Ml Solution) 20 gm PO BID [facility] Lorazepam (Lorazepam 0.5 Mg Tablet) 0.5 mg PO BID PRN PRN Reason: anxiety Last Admin: 09/13/22 08:20 Dose: 0.5 mg Magnesium Hydroxide (Milk Of Magnesia 30 Ml Oral.Susp) 30 ml PO DAILY PRN PRN Reason: Constipation Risperidone (Risperidone 0.5 Mg Tablet) 0.5 mg PO Q6H PRN PRN Reason: agitation Last Admin: 09/13/22 10:15 Dose: 0.5 mg Risperidone (Risperidone 2 Mg Tablet) 2 mg PO BID [facility] Last Admin: 09/13/22 08:19 Dose: 2 mg Trazodone HCl (Trazodone Hcl 100 Mg Tablet) 100 mg PO BEDTIME PRN PRN Reason: Insomnia Last Admin: 09/12/22 20:40 Dose: 100 mg Allergies Allergies Allergy/AdvReac Type Severity Reaction Status Date / Time No Known Allergies Allergy Verified 09/01/22 19:12 Assessment & Plan Assessment & Plan (1) Major neurocognitive disorder due to multiple etiologies with behavioral disturbance: Status: Acute Code(s): F02.818 - Dementia in other diseases classified elsewhere, unspecified severity, with other behavioral disturbance Plan Mr. Kerns is a 77 year-old male with hx of dementia, Bipolar Disorder who was brought on a Sect 12a after he was brought to [facility] due to concerns of his ability to care for himself. While he was there, pt demanded to leave the facility and became combative. On the unit, pt presents with paranoid delusions stating that people are breaking to his home and turning his AC off. He also reports people are entering his apartment and stealing his food. He also reports he suspects his son is after his money and this being the reason for son to send him to [facility]. Per son, psychosis is fairly new since last year. Pt does have hx of Bipolar Disorder. He also has hx of cocaine and opioid use. Son suspects pt used last 2 months ago. Pt does not show understanding of medical conditions, rationale for medical interventions, lacking capacity to make medical decisions. We discussed risks, benefits and alternative treatment options with both son as HCP and pt, about switching seroquel to risperidone and starting mood stabilizer such as depakote. PLAN 1. Admit to S1, CV, 3 day, 15 minutes checks for safety. 09/07 increase depakote to 500mg po BID. Continue risperidone 2mg po BID- some involuntary perioral movement noted, can add cogentin. No cogwheel. 09/08 continue tx. will check depakote level in 4 days. 09/09 continue tx. 09/10 continue current tx. pt calmer, no agitation nor aggression. 09/11 continue tx. 09/12 decrease trazodone to 100mg po qhs. 09/13 continue current medications. Reason for continued inpatient stay Substantial Risk for: inability to function Time Spent With Patient Time: Total time managing care of this patient today ____ minutes.
[2022-09-13] MEDS: Lactulose 20 GM/30 ML SOLUTION PO (14:15)
--- NOTE | 2022-09-13 17:36 | PC.NURSE ---
Jessica Mcgee, [employer] notified of ammonia level 62. No observed mental status changes. Lactulose x 1 administered and ammonia level to be drawn in am. Nolvia reported he had a BM after he took lactulose.
[2022-09-13 18:26] VITALS: BP 167/84; PULSE 86; RESP 16; TEMP 36.3; O2SAT 98
[2022-09-13] MEDS: Famotidine 20 MG TABLET 40 MG PO (20:22)
[2022-09-13] MEDS: traZODone HCL 100 MG TABLET PO ×2 (20:30→21:22)
[2022-09-14 08:00] VITALS: BP 155/73; PULSE 69; RESP 18; TEMP 36.1; O2SAT 97
[2022-09-14 08:04] LABS: Ammonia 105 umol/L (13-55)
[2022-09-14] MEDS: amLODIPine Besylate 2.5 MG TABLET PO (08:18)
[2022-09-14] MEDS: LORazepam 0.5 MG TABLET PO (08:18)
[2022-09-14] MEDS: Acetaminophen 325 MG TABLET 650 MG PO (08:18)
[2022-09-14] MEDS: risperiDONE 2 MG TABLET PO ×2 (08:18→20:01)
--- NOTE | 2022-09-14 09:03 | P.DS_ITS ---
DS: Providers Provider Date of Service: 09/14/22 Date of admission: 09/02/22 16:07 Primary care physician: Unknown Physician DS: Diagnosis Discharge Diagnosis (1) Major neurocognitive disorder due to multiple etiologies with behavioral disturbance: Status: Acute DS: Medications Discharge Medications Home Medications: Previous Rx's Medication Instructions Recorded amlodipine 2.5 mg tablet 2.5 mg PO DAILY #30 tabs 09/14/22 benztropine 0.5 mg tablet 0.5 mg PO BID #60 tabs 09/14/22 famotidine 20 mg tablet 40 mg PO BEDTIME #60 tabs 09/14/22 lactulose 20 gram/30 mL oral 20 g (30 mL) PO BID #1,200 mL 09/14/22 solution lorazepam 0.5 mg tablet 0.5 mg PO BID PRN anxiety #30 tabs 09/14/22 risperidone 2 mg tablet 2 mg PO BID #60 tabs 09/14/22 trazodone 100 mg tablet 100 mg PO BEDTIME PRN Insomnia #30 09/14/22 tabs Mental Status Exam Mental Status Exam Narrative: Appearance: casually groomed, appears stated age, in NAD Behavior: initially guarded, but increasingly more cooperative Psychomotor: no agitation or retardation noted Speech: clear, normal rate/rhythm/volume, spontaneous TP: mostly linear, tangential at times, no loose associations TC: wanting to go home soon, paranoid delusions of people stealing from him Mood: upset Affect: congruent SI: passive due to paranoid delusions but denies plan or intent to harm self or others HI: none AH/VH: reports hearing voices on and off Delusions: paranoid delusions of people coming to his house, stealing from him. Insight/judgment: impaired x 2. Memory/cog: alert, oriented to place, month, date, not situation. Data Data Completed and Pending Completed studies during hospitalization [Text1]: 09/13/22 09/13/22 09/14/22 06:47 06:47 07:28 Ammonia 62 H 105 H Valproic Acid 65.8 Imaging Diagnostic Imaging Impressions Head CT 09/03/22 15:14 IMPRESSION: No acute intracranial findings. Mild generalized atrophy and nonspecific periventricular white matter disease. 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 DS: Summary Hospital Course Hospital Course: Subjective Notes: Keller Warning (given and shows understanding), Conditional V oluntary and 3 Day Narrative: Mr. Kerns is a 77 year-old male with hx of Bipolar Disorder, newly dx dementia who was scheduled to moved to [facility] as there was concern about his ability to care for himself. Per records, once pt was brought to [facility] he asked to leave as he did not want to move in there. He became combative and apparently was throwing plant pots and threatening to harm staff. He was brought on a section 12 to [facility]. In the ED- his utox was negative. CBC shows normocytic anemia, CMP shows slightly elevated BUN @18 and Cr 1.16 with a creatinine clearance of 54.1. EKG shows right bundle branch block with Qtc 459ms. UA did not show any signs of urinary infection. On the unit, pt has presented as irritable, demanding to leave, reporting he does not like the food here. On interview, pt reports he has been experiencing people coming over his house to steak from him as well as he reports seeing about 16 people who come and turn off his AC. He reports he tried to hit them but nothing happens to them. He states I know it sounds crazy, but this is true, I can't trust anyone. Pt reports he suspects his son wants his money and therefore, wants him in a facility. He does note that he has been dx with dementia but he states this is not true, I'm fine. He reports passive suicidal ideation, which he further explains is due to these intruders that are coming to his house on a daily basis to turn off the AC. He states that when he went to [facility], he didn't like it as it seemed very formal and unfriendly environment. He also reports that he was worried that there people would still steal from him. He reports seeing his dog last night here in the hospital- which is not the case, dog has been with his ex for the past 3 weeks. He also reports hearing some voices last night but not currently. He reports at his house he hears his neighbors talking about him and alerting him about intruders that come to turn off the AC. Past Psychiatric History: Inpatient: none prior OP: Dr. Tavares Bowens [phone] HOSPITAL COURSE On the unit, pt was admitted on a CV and placed on 15 minutes checks for safety. Pt presented with paranoid delusions of 16 people coming to his appointment to steal food and turn off the AC. He reported despite trying to hit them nothing would happen to them and they continue to appear. Pt reports suspiciousness about his son insisting on pt not able to live on his own or care for ihmself due to cognitive impairments, which pt thought it was more because son wants his money. Pt does report hx of substance use. Per pt, pt has not used cocaine in about one year but son and his home health care case manager suspect recent use of about one month ago. Pt presents with impairments in recall, executive function, visuo spatial skills, impulse control as well as tendency for explosive behaviors and low frustration tolerance. Although, pt has been diagnosed for a long time with Bipolar disorder note that paranoid is fairly recent per his son. Most likely the paranoia is related to dementing process than his underlying mental illness. We discussed risks, benefits and alternative treatment options. Pt agreed to start risperidone as he reported seroquel was too sedating. Pt reported feeling anxious. He was also started on depakote for irritability and explosive behaviors. He was started on trazodone for sleep. His affect gradually presented as less labile, much less suspicious and less paranoid. He did not show signs of aggression several days prior to discharge. He did develop hyperammonemia with depakote, which was then discontinue. He was started on lactulose. Pt was on a sect 7 as he had expressed his preference to be discharged and at the time the team had the concern of increase aggression if not treated with medications. However, by the time the court date arrive, pt appeared in much improved condition. He was calmer, with slightly increase insight into willing to go to [facility] and try it. I suspect his increase willingness is result of treatment of his paranoia. Status at Discharge Cognitive/behavioral status at discharge: Pt with with calmer, less irritable affect. No SI/HI. Less paranoid delusions. Pt sleeping and eating well. Underlying cognitive impairments which pt has limited insight into. No aggression towards self or others. No overt psychosis noted. Functional status at discharge: independent ambulation Overall status at discharge: patient is progressing back to baseline Time Spent with Patient Time attestation: Total time managing care of this patient today ____ minutes. Time spent: Greater than 30 minutes Discharge Plan Discharge Anticipated Discharge Date/Time: 09/14/22 08:54 Patient Disposition: Home, Self-Care Discharge Diagnosis: Bipolar Disorder Major Neurocognitive Disorder Referrals: Physician,Unknown J [Primary Care Provider] - 1 Week Discharge Medications: New benztropine 0.5 mg Tablet 0.5 mg PO BID Qty: 60 0RF amlodipine 2.5 mg Tablet 2.5 mg PO DAILY Qty: 30 0RF Protocol: Hold for SBP< HOLD for SBP < : 90 risperidone 2 mg Tablet 2 mg PO BID Qty: 60 0RF famotidine 20 mg Tablet 40 mg PO BEDTIME Qty: 60 0RF lorazepam 0.5 mg Tablet 0.5 mg PO BID PRN (Reason: anxiety) Qty: 30 0RF trazodone 100 mg Tablet 100 mg PO BEDTIME PRN (Reason: Insomnia) Qty: 30 0RF lactulose 20 gram/30 mL Solution 20 g PO BID Qty: 1200 0RF Discontinued lorazepam 0.5 mg tablet 0.5 mg PO BID PRN (Reason: Anxiety) quetiapine 300 mg tablet 450 mg PO BEDTIME famotidine 40 mg tablet 40 mg PO BEDTIME Discharge Orders: Discharge Order (Routine); Ordered 09/14/22 Ordered By: Jessica Mcgee Diet: Regular diet Activity on Discharge: As tolerated Stand Alone Forms: Patient Portal Discharge page Care Plan Goals: 1. Maintain mood 2. No SI/HI 3. No aggression towards self or others. Health Concerns: Follow up with PCP Plan of Treatment: 1. Take medications as prescribed 2. Go to nearest ED or call 911 in event of emergency Assessment: Pt less irritable. Less paranoid delusions. No SI/HI. No aggression towards self or others. Limited insight into extend of cognitive impairment and need for additional supports.
[2022-09-14 11:25] LABS: Ammonia 135 umol/L (13-55)
[2022-09-14 12:23] LABS: MANUAL DIFF FLAG NO
[2022-09-14 12:26] LABS: Basophils Percent Auto 0.4 % (0-2); Eosinophils Absolute Auto 0.1 X10*3/uL (0.0-0.4); Eosinophils Percent Auto 1.4 % (0-4); Hematocrit 33.9 % (42.0-52.0); Imm Gran Abs Auto 0.03 X10*3/uL (0.00-0.03); Imm Gran Pct Auto 0.6 % (0.0-0.4); Lymphocytes Absolute Auto 1.4 X10*3/uL (1.2-4.9); Lymphocytes Percent Auto 28.4 % (20-40); Mean Corpuscular HGB Conc 32.4 g/dl (31.0-36.0); Mean Corpuscular Hemoglobin 30.8 pg (27.0-33.0); Mean Platelet Volume 11.1 fL (9.4-12.4); Monocytes Absolute Auto 0.4 X10*3/uL (0.1-1.2); Monocytes Percent Auto 8.5 % (2-11); Neutrophils Absolute Auto 2.9 x10*3/uL (2.0-8.3); Neutrophils Percent Auto 60.7 % (45-73); Platelet Count 152 X10*3/uL (160-400); Red Blood Count 3.57 X10*6/uL (4.60-5.80); Red Cell Distribution Width 14.4 % (11.0-16.0); White Blood Count 4.8 X10*3/uL (4.8-10.8)
[2022-09-14 12:39] LABS: Alanine Aminotransferase 7 U/L (0-40); Albumin Level 3.3 g/dL (3.5-5.0); Alkaline Phosphatase 48 U/L (39-117); Anion Gap 11 (12-20); Aspartate Amino Transferase 10 U/L (5-37); Bilirubin Total 0.3 mg/dL (0.0-1.0); Blood Urea Nitrogen 20 mg/dL (9-16); Calcium 8.5 mg/dL (8.4-10.2); Carbon Dioxide 27 mmol/L (22-29); Chloride 109 mmol/L (96-108); Creatinine Clr Calc Pharmacy 44.8; Estimated Glomerular Filt Rate 49; Glucose Random 119 mg/dL (60-115); Potassium 4.3 mmol/L (3.3-5.1); Sodium 143 mmol/L (135-145); Total Protein 5.6 g/dL (6.5-8.0)
[2022-09-14] MEDS: Lactulose 20 GM/30 ML SOLUTION PO ×2 (14:52→20:01)
--- NOTE | 2022-09-14 16:00 | P.PNPSI_ITS ---
Subjective Subjective Date of Service: 09/14/22 Reason For Visit: agitation Subjective Notes: Conditional Voluntary Interim History: Pt was scheduled to be discharged today. However, ammonia levels are higher today 100, then repeat 138. Pt somnolent, although able to remember that he was supposed to be discharged today. He did meet with [facility] facility staff. Interview went well. He slept through the night. When explained concern about high ammonia he agreed to sign CV and receive tx for hyperammonia. He also asked about his BP which has been elevated, pt on amlodipine. Ammonia level slightly elevated, will add lactulose, no signs of encephalopathy. Depakote level in 60's. Review of Systems Review of Systems Pt denies SOB. No chest pain. No GI symptoms including diarrhea or loose stools. Mental Status Exam Mental Status Exam Narrative: Appearance: casually groomed, appears stated age, in NAD Behavior: initially guarded, but increasingly more cooperative Psychomotor: no agitation or retardation noted Speech: clear, normal rate/rhythm/volume, spontaneous TP: mostly linear, tangential at times, no loose associations TC: wanting to go home soon, paranoid delusions of people stealing from him Mood: tired Affect: congruent SI: none HI: none AH/VH: none Delusions: less paranoid delusions of people coming to his house, stealing from him. Insight/judgment: poor x 2. Memory/cog: alert, oriented to place, month, date, not situation. Diagnostics Vital Signs (24Hr): Vital Signs - 24 hr 09/13/22 18:26 09/14/22 08:00 Temperature 97.4 F 96.9 F Pulse Rate 86 69 Respiratory Rate 16 18 Blood Pressure 167/84 H 155/73 H Pulse Oximetry 98 97 Oxygen Delivery Method Room Air Room Air BMI result Body Mass Index 23.4 Labs 09/14/22 12:19 09/14/22 12:19 Labs: Laboratory Results - last 48 hr 09/13/22 09/13/22 09/14/22 06:47 06:47 07:28 WBC RBC Hgb Hct MCV MCH MCHC RDW Plt Count MPV Immature Gran % (Auto) Neut % (Auto) Lymph % (Auto) [place] % (Auto) Eos % (Auto) Baso % (Auto) Lymph # (Auto) [place] # (Auto) Eos # (Auto) Baso # (Auto) Abs Immat Gran (auto) Absolute Neuts (auto) Absolute Nucleated RBC Nucleated RBC % (auto) Sodium Potassium Chloride Carbon Dioxide Anion Gap BUN Creatinine Estim Creat Clear Calc Estimated GFR Random Glucose Calcium Total Bilirubin AST ALT Alkaline Phosphatase Ammonia 62 H 105 H Total Protein Albumin Valproic Acid 65.8 09/14/22 09/14/22 09/14/22 11:05 12:19 12:19 WBC 4.8 RBC 3.57 L Hgb 11.0 L Hct 33.9 L MCV 95.0 MCH 30.8 MCHC 32.4 RDW 14.4 Plt Count 152 L MPV 11.1 Immature Gran % (Auto) 0.6 H Neut % (Auto) 60.7 Lymph % (Auto) 28.4 [facility] [place] % (Auto) 8.5 Eos % (Auto) 1.4 Baso % (Auto) 0.4 Lymph # (Auto) 1.4 [facility] [place] # (Auto) 0.4 Eos # (Auto) 0.1 Baso # (Auto) 0.0 Abs Immat Gran (auto) 0.03 Absolute Neuts (auto) 2.9 Absolute Nucleated RBC 0.000 Nucleated RBC % (auto) 0.0 Sodium 143 Potassium 4.3 Chloride 109 H Carbon Dioxide 27 Anion Gap 11 L BUN 20 H Creatinine 1.40 Estim Creat Clear Calc 44.8 Estimated GFR 49 Random Glucose 119 H Calcium 8.5 Total Bilirubin 0.3 AST 10 ALT 7 Alkaline Phosphatase 48 Ammonia 135 H Total Protein 5.6 L Albumin 3.3 L Valproic Acid Imaging Radiology Impressions: ITS Impressions Head CT 09/03/22 15:14 IMPRESSION: No acute intracranial findings. Mild generalized atrophy and nonspecific periventricular white matter disease. 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 Medications Medications Current Medications Acetaminophen (Acetaminophen 325 Mg Tablet) 650 mg PO Q6H PRN PRN Reason: Headache/Pain Mild Scale (1-3) Last Admin: 09/14/22 08:18 Dose: 650 mg Al Hydroxide/Mg Hydroxide (Magnesium Hydrox/Alum Hydrox 30 Ml Oral.Susp) 30 ml PO Q6H PRN PRN Reason: Heartburn/Nausea Amlodipine Besylate (Amlodipine Besylate 2.5 Mg Tablet) 2.5 mg PO DAILY CHARLENE; Protocol Last Admin: 09/14/22 08:18 Dose: 2.5 mg Benztropine Mesylate (Benztropine Mesylate 0.5 Mg Tablet) 0.5 mg PO BID [facility] Famotidine (Famotidine 20 Mg Tablet) 40 mg PO BEDTIME [facility] Last Admin: 09/13/22 20:22 Dose: 40 mg Lactulose (Lactulose 20 Gm/30 Ml Solution) 20 gm PO TID CHARLENE Last Admin: 09/14/22 14:52 Dose: 20 gm Lorazepam (Lorazepam 0.5 Mg Tablet) 0.5 mg PO BID PRN PRN Reason: anxiety Last Admin: 09/14/22 08:18 Dose: 0.5 mg Magnesium Hydroxide (Milk Of Magnesia 30 Ml Oral.Susp) 30 ml PO DAILY PRN PRN Reason: Constipation Risperidone (Risperidone 0.5 Mg Tablet) 0.5 mg PO Q6H PRN PRN Reason: agitation Last Admin: 09/13/22 10:15 Dose: 0.5 mg Risperidone (Risperidone 2 Mg Tablet) 2 mg PO BID CHARLENE Last Admin: 09/14/22 08:18 Dose: 2 mg Trazodone HCl (Trazodone Hcl 100 Mg Tablet) 100 mg PO BEDTIME PRN PRN Reason: Insomnia Last Admin: 09/13/22 21:22 Dose: 100 mg Allergies Allergies Allergy/AdvReac Type Severity Reaction Status Date / Time No Known Allergies Allergy Verified 09/01/22 19:12 Assessment & Plan Assessment & Plan (1) Major neurocognitive disorder due to multiple etiologies with behavioral disturbance: Status: Acute Code(s): F02.818 - Dementia in other diseases classified elsewhere, unspecified severity, with other behavioral disturbance Plan Mr. Kerns is a 77 year-old male with hx of dementia, Bipolar Disorder who was brought on a Sect 12a after he was brought to [facility] due to concerns of his ability to care for himself. While he was there, pt demanded to leave the facility and became combative. On the unit, pt presents with paranoid delusions stating that people are breaking to his home and turning his AC off. He also reports people are entering his apartment and stealing his food. He also reports he suspects his son is after his money and this being the reason for son to send him to [facility]. Per son, psychosis is fairly new since last year. Pt does have hx of Bipolar Disorder. He also has hx of cocaine and opioid use. Son suspects pt used last 2 months ago. Pt does not show understanding of medical conditions, rationale for medical interventions, lacking capacity to make medical decisions. We discussed risks, benefits and alternative treatment options with both son as HCP and pt, about switching seroquel to risperidone and starting mood stabilizer such as depakote. PLAN 1. Admit to S1, CV, 3 day, 15 minutes checks for safety. 09/07 increase depakote to 500mg po BID. Continue risperidone 2mg po BID- some involuntary perioral movement noted, can add cogentin. No cogwheel. 09/08 continue tx. will check depakote level in 4 days. 09/09 continue tx. 09/10 continue current tx. pt calmer, no agitation nor aggression. 09/11 continue tx. 09/12 decrease trazodone to 100mg po qhs. 09/13 continue current medications. 09/14- ammonia increase to 100, then 138, Lactulose increase to 20mg po TID, d/c depakote. Reason for continued inpatient stay Substantial Risk for: inability to function Time Spent With Patient Time: Total time managing care of this patient today ____ minutes.
--- NOTE | 2022-09-14 16:10 | PC.NURSE ---
Jessica Mcgee, THERAPY MANAGER aware of ammonia levels of 105 and 135. Discharge cancelled and Lactulose administered this afternoon as ordered.
[2022-09-14 18:00] VITALS: BP 146/72; PULSE 67; RESP 17; TEMP 36.6; O2SAT 98
[2022-09-14] MEDS: Benztropine Mesylate 0.5 MG TABLET PO (20:01)
[2022-09-14] MEDS: Famotidine 20 MG TABLET 40 MG PO (20:01)
[2022-09-14] MEDS: traZODone HCL 100 MG TABLET PO ×2 (20:10→21:30)
[2022-09-15] MEDS: risperiDONE 2 MG TABLET PO (08:09)
[2022-09-15] MEDS: amLODIPine Besylate 2.5 MG TABLET PO (08:09)
[2022-09-15] MEDS: Benztropine Mesylate 0.5 MG TABLET PO (08:09)
[2022-09-15] MEDS: Lactulose 20 GM/30 ML SOLUTION PO (08:09)
[2022-09-15 09:54] LABS: Ammonia 35 umol/L (13-55)
== END 2022-09-15 13:40 | disposition home or self-care (01) | DRG 885 ==
LOC: HO.ED 09-02 06:49 → HO.PGERI 09-02 16:13
PROVIDERS: Internal Medicine; Social Worker; Student in an Organized Health Care Education/Training Program; Admitting Provider Psychiatry & Neurology Psychiatry; Emergency Provider Emergency Medicine Emergency Medical Services; Visit Provider Psychiatry & Neurology Psychiatry
DX: F31.9 Bipolar disorder, unspecified (principal); F03.92 Unspecified dementia, unspecified severity, with psychotic disturbance; Z20.822 Contact with and (suspected) exposure to COVID-19; Z87.891 Personal history of nicotine dependence; Z79.899 Other long term (current) drug therapy
CPT/HCPCS: 36415; 70450; 80053; 80164; 80307; 81003; 82140; 85025; 87635; 93005; 99285; J2060